=== PATIENT | female | born 1990 | race Asian ===

== ENCOUNTER 2018-04-26 16:57 | Emergency (ER) | payer OTHER ==
[~2018-04-26] VITALS: Ht 170.2 cm; Wt 146.5 kg
[2018-04-26 18:26] LABS: PLATELET COUNT 394 K/uL (152-353)
[2018-04-26 18:32] LABS: POTASSIUM 3.6 mmol/L (3.6-5.2)
[2018-04-26 19:16] VITALS: BP 131/56; TEMP 97.5
== END 2018-04-26 19:17 | disposition home or self-care (01) ==
LOC: ED 16:57
DX: R10.9 Unspecified abdominal pain (principal); F12.10 Cannabis abuse, uncomplicated; F15.10 Other stimulant abuse, uncomplicated
CPT/HCPCS: 36415; 80053; 80307; 81000; 85027; 99283